=== PATIENT | female | born 2000 | race Caucasian/White ===

== ENCOUNTER 2023-07-16 23:40 | Emergency (ER) | payer MEDICAID ==
[~2023-07-16] VITALS: Ht 162.6 cm; Wt 86.6 kg
[2023-07-17 00:02] VITALS: BP 151/101; PULSE 79; RESP 16; TEMP 97.7; O2SAT 95
[2023-07-17 01:20] VITALS: O2SAT 95
[2023-07-17] MEDS ORDERED: ALUMINUM HYD/MAG/SIMETHICONE 30 ML UDC PO ONE (03:05)
[2023-07-17] MEDS ORDERED: ONDANSETRON 4 MG/2 ML VIAL IVP ONE (03:05)
[2023-07-17] MEDS ORDERED: MORPHINE SULFATE 4 MG/ML SYR IVP ONE (03:05)
[2023-07-17 03:17] LABS: APPEARANCE,URINE CLEAR (CLEAR); BILIRUBIN,URINE 1+ (NEGATIVE); BLOOD, URINE 1+ (NEGATIVE); COLOR,URINE YELLOW (YELLOW); LEUKOCYTE ESTERASE ,URINE TRACE (NEGATIVE); NITRITE, URINE NEGATIVE (NEGATIVE); PROTEIN,URINE TRACE (NEGATIVE); UGLUCOSE NEGATIVE (NEGATIVE); UROBILINOGEN,URINE 0.2 EU/dL (0.2 - 1)
[2023-07-17 03:24] LABS: BACTERIA,URINE >30 (MANY) /HPF (None Seen); ICTOTEST POSITIVE (NEGATIVE); RBC,URINE 0-5 /HPF (0-5)
[2023-07-17 03:25] LABS: BASOPHILS % (AUTO) 0.4 % (0.0-2.0); EOSINOPHILS % (AUTO) 0.3 % (0.0-4.0); HEMATOCRIT 38.7 % (36-48); HEMOGLOBIN 12.9 g/dL (12.0-16.0); LYMPHOCYTES # (AUTO) 4.1 K/uL (2.5-16.5); LYMPHOCYTES % (AUTO) 40.9 % (20.5-51.1); MEAN CORPUSCULAR HEMOGLOBIN 29 pg (27-31); MEAN CORPUSCULAR HGB CONC 33 g/dL (33-37); MONOCYTES # (AUTO) 0.6 K/uL (0.8-1.0); MONOCYTES % (AUTO) 5.5 % (1.7-9.3); NEUTROPHILS # (AUTO) 5.3 K/uL (1.8-7.7); NEUTROPHILS % (AUTO) 52.9 % (42.2-75.2); PLATELET COUNT (AUTO) 330 K/uL (140-450); RED BLOOD CELL COUNT(AUTO) 4.44 MIL/uL (4.20-5.40); RED CELL DISTRIBUTION WIDTH 12.3 % (11.6-13.7)
[2023-07-17 03:25] LABS: MUCUS,URINE 1+ /LPF (None Seen)
[2023-07-17 03:26] LABS: AMPHETAMINE, URINE NEGATIVE ng/ml (NEG <=1000); BARBITURATE, URINE NEGATIVE ng/ml (NEG <=200); BENZODIAZEPINE, URINE NEGATIVE ng/mL (NEG <=200); CANNABINOID, URINE POSITIVE ng/mL (NEG <=50); COCAINE, URINE NEGATIVE ng/mL (NEG <=300); OPIATE, URINE NEGATIVE ng/mL (NEG <=2000); PHENCYCLIDINE SCREEN,URINE NEGATIVE ng/mL (NEG <=25)
[2023-07-17 03:32] LABS: ALBUMIN 3.9 g/dL (3.4-5.0); ANION GAP 11.1 (8-16); CALCIUM 8.7 mg/dL (8.5-10.1); CARBON DIOXIDE 29.7 mmol/L (21-32); CREATININE 0.9 mg/dL (0.6-1.3); POTASSIUM 3.8 mmol/L (3.5-5.1); TOTAL BILIRUBIN 0.5 mg/dL (0.0-1.0); TOTAL PROTEIN, SERUM 7.2 g/dL (6.4-8.2)
[2023-07-17] MEDS ORDERED: BEN10 PO (06:41)
[2023-07-17] MEDS ORDERED: CEPH-588 PO (06:41)
[2023-07-17] MEDS ORDERED: MAG-27 PO (06:44)
== END 2023-07-17 07:16 | disposition home or self-care (01) ==
LOC: MED 23:40
DX: N39.0 Urinary tract infection, site not specified (principal); F12.90 Cannabis use, unspecified, uncomplicated; Z71.6 Tobacco abuse counseling; Z79.899 Other long term (current) drug therapy
CPT/HCPCS: 36415; 74176; 80053; 80305; 81001; 81025; 83690; 85025; 87086; 96374; 96375; 99285; J2270; J2405

== ENCOUNTER 2023-11-20 13:19 | Emergency (ER) | payer MEDICAID, OTHER ==
[~2023-11-20] VITALS: Ht 162.6 cm; Wt 88.1 kg
[~2023-11-20 13:19] MED LIST: BEN10 PO; CEPH-588 PO; MAG-27 PO
[2023-11-20 13:36] VITALS: BP 125/99; PULSE 69; RESP 19; TEMP 98.1; O2SAT 96
[2023-11-20] MEDS ORDERED: PRED20TA5 PO (14:17)
[2023-11-20] MEDS ORDERED: ACYC400T14 PO (14:17)
== END 2023-11-20 14:25 | disposition home or self-care (01) ==
LOC: MED 13:19
DX: G51.0 Bell's palsy (principal); Z86.69 Personal history of other diseases of the nervous system and sense organs; Z79.899 Other long term (current) drug therapy; Z79.2 Long term (current) use of antibiotics
CPT/HCPCS: 82948; 99283